=== PATIENT | male | born 1945 | race African-American/Black ===

== ENCOUNTER 2016-12-02 16:11 | Emergency (ER) | payer OTHER, BC ==
[~2016-12-02] VITALS: Ht 185.4 cm; Wt 104.3 kg
[~2016-12-02 16:11] MED LIST: CARISOPRODOL350 MG ORAL; GABAPENTIN300 MG ORAL; IBUPROFEN600 MG ORAL; LISINOPRIL5 MG ORAL; NORCO 10/3251 EA ORAL; NORCO 5-325 TA1 EACH ORAL; NORCO1 E1 ORAL; ROBAXIN-750750 MG PO; ZOLPIDEM TARTRA10 MG ORAL
[2016-12-02 16:24] VITALS: BP 101/61
[2016-12-02] MEDS ORDERED: Norco 5mg/325mg tab ORAL ONE (17:15)
[2016-12-02] MEDS ORDERED: Ketorolac 60mg Inj IM ONE (17:15)
[2016-12-02 17:57] VITALS: BP 113/63
--- NOTE | 2016-12-02 17:57 | Emergency Room Report ---
History of Present Illness General Chief Complaint: Pain Source: Patient, Medical Record Present Illness HPI 70-year-old male presents emergency department complaining of 10 out of 10 in severity left knee swelling, pain and tenderness x2 days. Patient reports that he recently had surgery done to the right knee and has been walking and compensating with his left knee. Patient states that he feels as though his knee gave out and he has had pain ever since. Patient denies erythema, increased temperature palpation, or recent fall. Denies numbness tingling or loss of sensation or gross motor movements of the extremities, incontinence of bowel or bladder. Denies CP, Palpitations, LOC, AMS, dizziness, Changes in Vision, Sensation, paresthesias, or a sudden severe headache. Allergies: Coded Allergies: No Known Allergies (Unverified , 11/10/12) Patient History Past Medical History: see triage record Past Surgical History: none Pertinent Family History: none Immunizations: UTD Reviewed Nursing Documentation: PMH: Agreed, PSxH: Agreed Nursing Documentation-PMH Past Medical History: No History, Except For Hx Cardiac Problems: Yes Hx Hypertension: Yes Hx Asthma: Yes Hx Cancer: No Hx Gastrointestinal Problems: No Hx Neurological Problems: No Review of Systems All Other Systems: negative except mentioned in HPI Physical Exam Vital Signs Date Time Temp Pulse Resp B/P Pulse Ox O2 Delivery O2 Flow Rate FiO2 12/02/16 16:24 98.1 87 16 101/61 97 Room Air Sp02 EP Interpretation: reviewed, normal General Appearance: no apparent distress, alert, GCS 15, non-toxic Head: normocephalic, atraumatic Eyes: bilateral eye PERRL, bilateral eye normal inspection ENT: hearing grossly normal, normal pharynx, no angioedema, normal voice Neck: full range of motion, supple/symm/no masses Respiratory: chest non-tender, lungs clear, normal breath sounds, speaking full sentences Cardiovascular #1: regular rate, rhythm, no edema Musculoskeletal: back normal, normal range of motion, no calf tenderness, tender - moderate anterior and lateral ttp of the left knee, there is swelling noted, no erythema, no increased temperature to palpation, mild increase in laxity noted. Neurologic: alert, oriented x3, responsive, motor strength/tone normal, sensory intact, speech normal Psychiatric: judgement/insight normal, memory normal, mood/affect normal Skin: normal color, no rash, warm/dry, well hydrated Lymphatic: no adenopathy Medical Decision Making PA Attestation Dr. Lerner is my supervising Physician whom patient management has been discussed with. Diagnostic Impression: Primary Impression: Knee fracture, left Additional Impression: Knee effusion, left ER Course 70-year-old male presents emergency department complaining of 10 out of 10 in severity left knee swelling, pain and tenderness x2 days. Patient reports that he recently had surgery done to the right knee and has been walking and compensating with his left knee. Patient states that he feels as though his knee gave out and he has had pain ever since. Patient denies erythema, increased temperature palpation, or recent fall. Denies numbness tingling or loss of sensation or gross motor movements of the extremities, incontinence of bowel or bladder. Ddx considered but are not limited to Fracture, dislocation, contusion, Sprain/ Strain/Spasm, Epidural abscess, Neoplastic mets. Vital signs: are WNL, pt. is afebrile H&PE are most consistent with left knee effusion, will do imaging. ORDERS: - X-ray left knee 3 views - Positive for chip fracture of distal femur , Dislocation, or significant soft tissue injury, per preliminary read in ED by Dr. Lerner ED INTERVENTIONS: - Wallace PO - Knee immobilizer Splint applied to left knee by certified dialysis technician. Pt. remains neurovascularly intact. -Pt provided with crutches DISCHARGE: At this time pt. is stable for d/c to home. Will provide printed patient care instructions, and any necessary prescriptions. Care plan and follow up instructions have been discussed with the patient prior to discharge. Last Vital Signs Date Time Temp Pulse Resp B/P Pulse Ox O2 Delivery O2 Flow Rate FiO2 12/02/16 17:31 98.1 12/02/16 16:24 87 16 101/61 97 Room Air Disposition: HOME, SELF-CARE Condition: Stable Scripts Hydrocodone Bit/Acetaminophen 5-325* (NORCO 5-325*) 1 Each Tablet 1 TAB ORAL Q6H Y for For Pain, #10 TAB 0 Refills Prov: Komal Hendricks P.A. 12/02/16 Ibuprofen* (MOTRIN*) 600 Mg Tablet 600 MG ORAL THREE TIMES A DAY, #30 TAB 0 Refills Prov: Komal Hendricks P.A. 12/02/16 Patient Instructions: Knee Fracture, Adult Additional Instructions: Take medications as directed. Follow up with PCP/ Bean Picker Machine Operator in 3-5 days Return sooner to ED if new symptoms occur, or current symptoms become worse. Do not drink alcohol, drive, or operate heavy machinery while taking Wallace as this may cause drowsiness. - Please note that this Emergency Department Report was dictated using Smart [employer]ipe[employer] and breakfast innkeeper technology software, occasionally this can lead to erroneous entry secondary to interpretation by the dictation equipment. Komal Hendricks December 02, 2016 17:57
[2016-12-02] MEDS ORDERED: IBUPROFEN600 MG ORAL (17:58)
[2016-12-02] MEDS ORDERED: NORCO 5-325 TA1 EACH ORAL (17:58)
--- NOTE | 2016-12-03 10:37 | Diagnostic Imaging Report ---
Indication: Pain 3 views of the left knee were obtained. Findings: There is opacification of the suprapatellar region and generalized subcutaneous edema about the knee. Subchondral cystic changes noted in the patellofemoral compartment. No fracture or malalignment seen. Impression: Soft tissue swelling and joint effusion suspected. Patellofemoral osteoarthritis
== END 2016-12-02 18:23 | disposition home or self-care (01) ==
LOC: EMR 16:58
DX: S82.002A Unspecified fracture of left patella, initial encounter for closed fracture (principal); X58.XXXA Exposure to other specified factors, initial encounter; Y92.9 Unspecified place or not applicable; M17.12 Unilateral primary osteoarthritis, left knee; M25.462 Effusion, left knee; I10 Essential (primary) hypertension; J45.909 Unspecified asthma, uncomplicated
CPT/HCPCS: 96372; 99284

== ENCOUNTER 2017-03-20 15:24 | Emergency (ER) | payer BC, OTHER ==
[~2017-03-20] VITALS: Ht 188 cm; Wt 104.3 kg
[2017-03-20] MEDS ORDERED: VICODIN HP 10-1 EACH ORAL (15:31)
[2017-03-20] MEDS ORDERED: HYDROCHLOROTHIA25 MG ORAL (15:31)
[2017-03-20] MEDS ORDERED: ACETAMINOPHEN-1 EAC1 ORAL (16:29)
[2017-03-20 16:40] VITALS: BP 124/78
--- NOTE | 2017-03-20 21:13 | Emergency Room Report ---
History of Present Illness General Chief Complaint: Pain Source: Patient Present Illness HPI The patient is a 71-year-old male presenting for right foot pain. He has a history of venous insufficiency and has had swollen foot in the past. He states that he was in [place] and was on his feet more than usual and started to notice pain and swelling of the right foot. This began 3 days prior while in [place]. Pain is a 9/10 dull ache and does not radiate. Worse with walking. He denies any numbness or tingling. He denies any known injury to the area. He denies any other symptoms including N, V, F, chills, SOB, calf pain, CP Allergies: Coded Allergies: No Known Allergies (Unverified , 11/10/12) Patient History Past Medical History: see triage record Pertinent Family History: none Reviewed Nursing Documentation: PMH: Agreed, PSxH: Agreed Nursing Documentation-PMH Hx Cardiac Problems: Yes Hx Hypertension: Yes Hx Asthma: Yes Hx Cancer: No Hx Gastrointestinal Problems: No Hx Neurological Problems: No Review of Systems All Other Systems: negative except mentioned in HPI Physical Exam Vital Signs Date Time Temp Pulse Resp B/P Pulse Ox O2 Delivery O2 Flow Rate FiO2 03/20/17 15:28 97.5 85 20 136/75 97 Room Air Sp02 EP Interpretation: reviewed, normal General Appearance: no apparent distress, alert, GCS 15, non-toxic Eyes: bilateral eye PERRL, bilateral eye normal inspection Respiratory: chest non-tender, lungs clear, normal breath sounds, speaking full sentences Musculoskeletal: back normal, gait/station normal, normal range of motion, no calf tenderness, swelling - diffuse 1+ pitting edema to the R foot only, tender - Diffuse TTP of the foot Neurologic: alert, oriented x3, responsive, motor strength/tone normal, sensory intact, speech normal Psychiatric: judgement/insight normal, memory normal, mood/affect normal, no suicidal/homicidal ideation Skin: normal color, no rash, warm/dry, well hydrated Medical Decision Making PA Attestation Dr. Solis is my supervising physician. Patient management was discussed with my supervising physician Diagnostic Impression: Primary Impression: Foot pain, right ER Course The patient is a 71-year-old male presenting for right foot pain. Differential diagnosis considered not limited to: Venous insufficiency, gout, sprain, contusion, DVT, among others Physical exam: Afebrile. No apparent distress Lungs are clear to auscultation bilaterally Right leg: There is no calf tenderness or lower leg edema. There is 1+ pitting edema and diffuse tenderness to palpation over the foot which extends from the ankle to the toes. Skin is warm and dry. No erythema Otherwise exam unremarkable X-ray of the right foot reveals no acute findings Tomas wrap is placed over the right foot and the patient will be discharged home. He needs to followup with his primary doctor. ER precautions are given Other X-Ray Diagnostic Results Other X-Ray Diagnostic Results : X-Ray ordered: R foot # of Views/Limited Vs Complete: 3 View Indication: Pain EP Interpretation: Yes Interpretation: no dislocation, no fractures, other - + STS Impression: No acute disease Interpreting ER Provider: Bridger Solis MD PA Scribe Text I am acting as scribe for my supervising physician. My supervising physician's interpretation of the R foot xrays are there are no fractures, dislocations. + STS Last Vital Signs Date Time Temp Pulse Resp B/P Pulse Ox O2 Delivery O2 Flow Rate FiO2 03/20/17 16:40 97.5 77 16 124/78 99 Room Air Status: improved Disposition: HOME, SELF-CARE Condition: Improved Scripts Acetaminophen With Codeine (T#3) (TYLENOL #3 TAB*) Y Tab 1 TAB ORAL Q6HR Y for For Pain, #10 TAB Prov: PATEL GOMEZ 03/20/17 Patient Instructions: Edema Additional Instructions: I discussed my findings with the patient. All questions and concerns have been answered. Treatment and medication compliance have been addressed. I advised the patient that they need to follow up with PMD in 3-5 days. Return to ED if pain remains or worsens, swelling worsens, numbness or tingling occurs, new rash is noticed, fever is noticed, you have chest pain or shortness of breath, or if needed for any reason. Patient verbalized understanding of discharge instructions. PATEL GOMEZ Mar 20, 2017 21:13
--- NOTE | 2017-03-21 10:37 | Diagnostic Imaging Report ---
Indication: PAIN Technique: 3 views right foot Comparison: none Findings: There is hammertoe deformity of the second through fifth digits. There is mild metatarsus adductus. There is mild hallux valgus. No acute fractures. No dislocations. There is a small plantar spur. The joint spaces are preserved. Impression: Findings as noted. No acute bony trauma
== END 2017-03-20 16:41 | disposition home or self-care (01) ==
LOC: EMR 15:50
DX: M25.571 Pain in right ankle and joints of right foot (principal); I10 Essential (primary) hypertension; M77.9 Enthesopathy, unspecified; M20.41 Other hammer toe(s) (acquired), right foot
CPT/HCPCS: 99283

== ENCOUNTER 2017-06-06 09:55 | Outpatient (CLI) | payer BC, OTHER ==
[~2017-06-06 09:55] MED LIST changes: +ACETAMINOPHEN-1 EAC1 ORAL; +HYDROCHLOROTHIA25 MG ORAL; +VICODIN HP 10-1 EACH ORAL
--- NOTE | 2017-06-06 12:26 | Diagnostic Imaging Report ---
APPROVED REPORT CPT Code: 08968 Present Symptoms Lower Extremity Pain: Right Lower Extremity Edema: Bilateral BILATERAL: Imaging reveals a patent deep venous system bilaterally. There is no evidence of thrombus within the femoral, popliteal or tibial segments. The greater saphenous veins are also within normal limits. Doppler indicates normal spontaneous flow within these segments. Incidental finding: Right knee area: Septated cystic fluid collection noted in the superior- lateral knee area, measuring (4.0 cm x 1.4cm). Left knee area: Cystic free fluid collection noted in the superior- lateral knee area, measuring (2.2 cm x 0.9 cm).
--- NOTE | 2017-06-06 12:26 | Diagnostic Imaging Report ---
APPROVED REPORT CPT Code: 17205 Present Symptoms Lower Extremity Pain: Right Lower Extremity Edema: Bilateral BILATERAL: Imaging reveals a patent deep venous system bilaterally. There is no evidence of thrombus within the femoral, popliteal or tibial segments. The greater saphenous veins are also within normal limits. Doppler indicates normal spontaneous flow within these segments. Incidental finding: Right knee area: Septated cystic fluid collection noted in the superior- lateral knee area, measuring (4.0 cm x 1.4cm). Left knee area: Cystic free fluid collection noted in the superior- lateral knee area, measuring (2.2 cm x 0.9 cm).
--- NOTE | 2017-06-06 12:26 | Diagnostic Imaging Report ---
APPROVED REPORT CPT Code: 32130 Present Symptoms Lower Extremity Pain: Right Lower Extremity Edema: Bilateral BILATERAL: Imaging reveals a patent deep venous system bilaterally. There is no evidence of thrombus within the femoral, popliteal or tibial segments. The greater saphenous veins are also within normal limits. Doppler indicates normal spontaneous flow within these segments. Incidental finding: Right knee area: Septated cystic fluid collection noted in the superior- lateral knee area, measuring (4.0 cm x 1.4cm). Left knee area: Cystic free fluid collection noted in the superior- lateral knee area, measuring (2.2 cm x 0.9 cm).
== END 2017-06-06 11:55 | disposition home or self-care (01) ==
LOC: VAS 09:55
DX: M79.605 Pain in left leg (principal); M79.604 Pain in right leg; R60.0 Localized edema
CPT/HCPCS: 93970

== ENCOUNTER 2018-03-16 17:05 | Emergency (ER) | payer BC, OTHER ==
[~2018-03-16] VITALS: Ht 185.4 cm; Wt 104.3 kg
[2018-03-16] MEDS ORDERED: Ketorolac 30mg Inj IV ONE (18:00)
[2018-03-16] MEDS ORDERED: Methocarbamol 500mg tab ORAL ONE (18:00)
--- NOTE | 2018-03-16 18:23 | Emergency Room Report ---
History of Present Illness General Chief Complaint: Lower Back Pain or Injury Source: Patient (Jordan Batista) Present Illness HPI 72-year-old male patient presents ER with multiple complaints. planing of pain in bilateral legs and ankles, complains of swelling the extremities. for swelling in extremities is new in onset. Reports history of DVT, does not take any blood thinners at this time. States he was recently told to discontinue taking aspirin. States that he called scheduled appointment with his doctor, was called back by the doctor and told reports to the ER. Denies history of CHF. Patient reports back pain for the past several days, states recent history of cyst surgery to remove cysts and left side of lower back. Denies radiation of pain down the legs. Denies bowel or bladder incontinence. Denies recent injury or trauma. states he is able to ambulate. reports recently diagnosed with diabetes.reports history of hypertension, taking blood pressure medication. reports history of ME "years ago". (Jordan Batista) Allergies: Coded Allergies: No Known Allergies (Unverified , 11/10/12) Patient History Past Medical History: see triage record Reviewed Nursing Documentation: PMH: Agreed; PSxH: Agreed (Jordan Batista) Nursing Documentation-PMH Past Medical History: No History, Except For Hx Cardiac Problems: Yes Hx Hypertension: Yes Hx Asthma: Yes Hx Cancer: No Hx Gastrointestinal Problems: No Hx Neurological Problems: No (Jordan Batista) Review of Systems All Other Systems: negative except mentioned in HPI (Jordan Batista) Physical Exam Vital Signs Date Time Temp Pulse Resp B/P (MAP) Pulse Ox O2 Delivery O2 Flow Rate FiO2 03/16/18 17:10 98.0 71 18 150/75 99 Room Air 98.1 Sp02 EP Interpretation: reviewed, normal General Appearance: well appearing, no apparent distress, alert, GCS 15, non- toxic Head: normocephalic, atraumatic Eyes: bilateral eye normal inspection, bilateral eye PERRL ENT: hearing grossly normal, normal pharynx, no angioedema, normal voice, uvula midline, moist mucus membranes Neck: full range of motion, no bony tend Respiratory: lungs clear, normal breath sounds, no rhonchi, no respiratory distress, no accessory muscle use, no wheezing, speaking full sentences Cardiovascular #1: regular rate, rhythm, edema Gastrointestinal: non tender, soft, no mass, non-distended, no guarding, no rebound Musculoskeletal: back normal, digits/nails normal, gait/station normal, normal range of motion, non-tender, no calf tenderness, Damaris's Sign negative Neurologic: alert, oriented x3, responsive, motor strength/tone normal, sensory intact Psychiatric: mood/affect normal Skin: no rash (Jordan Batista) Medical Decision Making PA Attestation Dr. Herrera is my supervising Physician whom patient management has been discussed with. (Jordan Batista) Diagnostic Impression: Primary Impression: Peripheral edema Additional Impression: Low back pain ER Course Pt. presents to the ED c/o bilateral leg swelling and back pain. Ddx considered but are not limited to DVT, PE, ME, peripheral vascular disease, sprain, strain, muscle spasm, UTI. Vital signs: are WNL, pt. is afebrile ER COURSE: provide patient with back pain medication and muscle relaxant. CBC and CMP unremarkable, Coags WNL BNP not elevated above normal Troponin negative EKG shows no ST elevations or arrhythmia, right bundle branch block noted, T wave inversions noted in V1 through V4 leads chest x-ray shows diffuse consolidation consistent with CHF per the preliminary reading. Consult with Dr. Herrera agrees with the x-ray reading finding. Venous duplex ultrasound shows no DVT per triage technician. Due to patient symptoms of peripheral edema and chest x-ray findings, we will admit patient for CHF. consult with Dr. Herrera, patient care transferred to Dr. Herrera. - Please note that this Emergency Department Report was dictated using [employer]ang[employer] heater technology software, occasionally this can lead to erroneous entry secondary to interpretation by the dictation equipment. Labs Test 03/16/18 19:00 White Blood Count 5.3 K/UL (4.8-10.8) Red Blood Count 3.85 M/UL (4.70-6.10) Hemoglobin 11.9 G/DL (14.2-18.0) Hematocrit 35.9 % (42.0-52.0) Mean Corpuscular Volume 93 FL (80-99) Mean Corpuscular Hemoglobin 30.9 PG (27.0-31.0) Mean Corpuscular Hemoglobin Concent 33.1 G/DL (32.0-36.0) Red Cell Distribution Width 11.6 % (11.6-14.8) Platelet Count 200 K/UL (150-450) Mean Platelet Volume 5.6 FL (6.5-10.1) Neutrophils (%) (Auto) 42.1 % (45.0-75.0) Lymphocytes (%) (Auto) 42.3 % (20.0-45.0) Monocytes (%) (Auto) 12.0 % (1.0-10.0) Eosinophils (%) (Auto) 2.4 % (0.0-3.0) Basophils (%) (Auto) 1.2 % (0.0-2.0) Prothrombin Time 10.3 SEC (9.30-11.50) Prothromb Time International Ratio 1.0 (0.9-1.1) Activated Partial Thromboplast Time 26 SEC (23-33) Sodium Level 142 MMOL/L (136-145) Potassium Level 4.1 MMOL/L (3.5-5.1) Chloride Level 105 MMOL/L (98-107) Carbon Dioxide Level 30 MMOL/L (21-32) Anion Gap 7 mmol/L (5-15) Blood Urea Nitrogen 17 mg/dL (7-18) Creatinine 1.3 MG/DL (0.55-1.30) Estimat Glomerular Filtration Rate mL/min (>60) Glucose Level 99 MG/DL (74-106) Calcium Level 9.7 MG/DL (8.5-10.1) Total Bilirubin 0.4 MG/DL (0.2-1.0) Aspartate Amino Transf (AST/SGOT) 26 U/L (15-37) Alanine Aminotransferase (ALT/SGPT) 32 U/L (12-78) Alkaline Phosphatase 97 U/L (46-116) Total Creatine Kinase 221 U/L (26-308) Creatine Kinase MB 2.7 NG/ML (0.0-3.6) Creatine Kinase MB Relative Index 1.2 Troponin I 0.000 ng/mL (0.000-0.056) Pro-B-Type Natriuretic Peptide 104 pg/mL (0-125) Total Protein 7.3 G/DL (6.4-8.2) Albumin 3.7 G/DL (3.4-5.0) Globulin 3.6 g/dL Albumin/Globulin Ratio 1.0 (1.0-2.7) (Jordan Batista) ER Course I evaluated Mr. Jacinto. CXR showed alveolar congestion. 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 He has been evaluated recently by network cabler who explained that his "heart is fine." He does have 2+ pitting edema without acute DVT on US. He will be discharged home. I do not suspect CHF on re-evaluation. Labs Test 03/16/18 19:00 03/16/18 21:46 White Blood Count 5.3 K/UL (4.8-10.8) Red Blood Count 3.85 M/UL (4.70-6.10) Hemoglobin 11.9 G/DL (14.2-18.0) Hematocrit 35.9 % (42.0-52.0) Mean Corpuscular Volume 93 FL (80-99) Mean Corpuscular Hemoglobin 30.9 PG (27.0-31.0) Mean Corpuscular Hemoglobin Concent 33.1 G/DL (32.0-36.0) Red Cell Distribution Width 11.6 % (11.6-14.8) Platelet Count 200 K/UL (150-450) Mean Platelet Volume 5.6 FL (6.5-10.1) Neutrophils (%) (Auto) 42.1 % (45.0-75.0) Lymphocytes (%) (Auto) 42.3 % (20.0-45.0) Monocytes (%) (Auto) 12.0 % (1.0-10.0) Eosinophils (%) (Auto) 2.4 % (0.0-3.0) Basophils (%) (Auto) 1.2 % (0.0-2.0) Prothrombin Time 10.3 SEC (9.30-11.50) Prothromb Time International Ratio 1.0 (0.9-1.1) Activated Partial Thromboplast Time 26 SEC (23-33) Sodium Level 142 MMOL/L (136-145) Potassium Level 4.1 MMOL/L (3.5-5.1) Chloride Level 105 MMOL/L (98-107) Carbon Dioxide Level 30 MMOL/L (21-32) Anion Gap 7 mmol/L (5-15) Blood Urea Nitrogen 17 mg/dL (7-18) Creatinine 1.3 MG/DL (0.55-1.30) Estimat Glomerular Filtration Rate mL/min (>60) Glucose Level 99 MG/DL (74-106) Calcium Level 9.7 MG/DL (8.5-10.1) Total Bilirubin 0.4 MG/DL (0.2-1.0) Aspartate Amino Transf (AST/SGOT) 26 U/L (15-37) Alanine Aminotransferase (ALT/SGPT) 32 U/L (12-78) Alkaline Phosphatase 97 U/L (46-116) Total Creatine Kinase 221 U/L (26-308) Creatine Kinase MB 2.7 NG/ML (0.0-3.6) Creatine Kinase MB Relative Index 1.2 Troponin I 0.000 ng/mL (0.000-0.056) Pro-B-Type Natriuretic Peptide 104 pg/mL (0-125) Total Protein 7.3 G/DL (6.4-8.2) Albumin 3.7 G/DL (3.4-5.0) Globulin 3.6 g/dL Albumin/Globulin Ratio 1.0 (1.0-2.7) Urine Color Pale yellow Urine Appearance Clear Urine pH 6.5 (4.5-8.0) Urine Specific [place] 1.010 (1.005-1.035) Urine Protein Negative (NEGATIVE) Urine Glucose (UA) Negative (NEGATIVE) Urine Ketones Negative (NEGATIVE) Urine Occult Blood Negative (NEGATIVE) Urine Nitrite Negative (NEGATIVE) Urine Bilirubin Negative (NEGATIVE) Urine Urobilinogen Normal MG/DL (0.0-1.0) Urine Leukocyte Esterase Negative (NEGATIVE) Lab Results Impression normal BNP (PERCY HERRERA) EKG Diagnostic Results Rate: normal Rhythm: NSR ST Segments: no acute changes Other Impression right bundle-branch block T wave inversions in V1-V4 ASA given to the pt in ED: No PA Scribe Text Kevin Batista PA-C (Jordan Batista P.A.) EKG Time: 18:42 EP Interpretation: left axis devation RBBB Rate: normal Rhythm: NSR ST Segments: no acute changes (PERCY HERRERA) Rhythm Strip Diag. Results EP Interpretation: yes Rate: 71 Rhythm: NSR, no PVC's, no ectopy PA Scribe Text Kevin Batista PA-C (Jordan Batista) Chest X-Ray Diagnostic Results Chest X-Ray Diagnostic Results : Chest X-Ray Ordered: Yes # of Views/Limited/Complete: 1 View Indication: Chest Pain EP Interpretation: Yes PA Xray: Interpretation reviewed, by supervising MD, and agrees with findings. Interpretation: no pneumothorax, other - diffuse consolidation throughout the lung moscoso Impression: Other PA Scribe Text Kevin CHILEL-C (Jordan Batista) CT/MRI/US Diagnostic Results CT/MRI/US Diagnostic Results : Imaging Test Ordered: venous duplex US of bilateral lower extremities Impression WNL No DVT (Jordan Batista) Last Vital Signs Date Time Temp Pulse Resp B/P (MAP) Pulse Ox O2 Delivery O2 Flow Rate FiO2 03/16/18 17:10 98.0 71 18 150/75 99 Room Air 98.1 (Jordan Batista) Disposition: HOME, SELF-CARE Condition: Stable Jordan Batista Mar 16, 2018 18:23 PERCY HERRERA Mar 16, 2018 22:47
[2018-03-16 19:18] LABS: BASOPHILS % (AUTO) 1.2 % (0.0-2.0); EOSINOPHILS % (AUTO) 2.4 % (0.0-3.0); HEMATOCRIT 35.9 % (42.0-52.0); HEMOGLOBIN 11.9 G/DL (14.2-18.0); LYMPHOCYTES % (AUTO) 42.3 % (20.0-45.0); MEAN CORPUSCULAR VOLUME 93 FL (80-99); NEUTROPHILS % (AUTO) 42.1 % (45.0-75.0); PLATELET COUNT 200 K/UL (150-450); RED BLOOD COUNT 3.85 M/UL (4.70-6.10); RED CELL DISTRIBUTION WIDTH 11.6 % (11.6-14.8); WHITE BLOOD COUNT 5.3 K/UL (4.8-10.8)
[2018-03-16 19:30] VITALS: BP 145/72
[2018-03-16 19:38] LABS: ANION GAP 7 mmol/L (5-15); BLOOD UREA NITROGEN 17 mg/dL (7-18); CALCIUM 9.7 MG/DL (8.5-10.1); CARBON DIOXIDE 30 MMOL/L (21-32); CHLORIDE 105 MMOL/L (98-107); CREATININE 1.3 MG/DL (0.55-1.30); POTASSIUM 4.1 MMOL/L (3.5-5.1); SODIUM 142 MMOL/L (136-145)
[2018-03-16 19:52] LABS: ALANINE AMINOTRANSFERASE 32 U/L (12-78); ALBUMIN 3.7 G/DL (3.4-5.0); ALKALINE PHOSPHATASE 97 U/L (46-116); ASPARTATE AMINO TRANSFERASE 26 U/L (15-37); BILIRUBIN,TOTAL 0.4 MG/DL (0.2-1.0); CKMB 2.7 NG/ML (0.0-3.6); CREATINE KINASE 221 U/L (26-308)
[2018-03-16 20:32] VITALS: BP 147/58
[2018-03-16 22:18] LABS: APPEARANCE,URINE CLEAR; BILIRUBIN, URINE NEGATIVE (NEGATIVE); COLOR,URINE PALE YELLOW; GLUCOSE, URINE (UA) NEGATIVE (NEGATIVE); KETONES,URINE NEGATIVE (NEGATIVE); LEUKOCYTE ESTERASE ,URINE NEGATIVE (NEGATIVE); NITRITE,URINE NEGATIVE (NEGATIVE); PH,URINE 6.5 (4.5-8.0); PROTEIN,URINE NEGATIVE (NEGATIVE); UROBILINOGEN,URINE NORMAL MG/DL (0.0-1.0)
[2018-03-16 22:49] VITALS: BP 153/89
[2018-03-16 23:00] VITALS: BP 153/89
--- NOTE | 2018-03-17 09:01 | Diagnostic Imaging Report ---
Indication: Chest pain Technique: One view of the chest Comparison: 09/03/2013 Findings: Interim development of interstitial disease. There is also marked central bronchial wall thickening, also new finding. Inspiration is suboptimal. No focal airspace consolidation. Pleural spaces are clear Impression: Bilateral interstitial disease. New since 09/03/2013, so likely acute on the basis of interstitial edema. However, presence of extensive central bronchial wall thickening raises possibility of a significant chronic component
--- NOTE | 2018-03-17 15:34 | Cardiology Report ---
APPROVED REPORT EKG Measurement Heart [id number] Normal sinus rhythm Left axis deviation Right bundle branch block Possible Lateral infarct, age undetermined Inferior infarct, age undetermined Abnormal ECG
--- NOTE | 2018-03-18 23:36 | Diagnostic Imaging Report ---
APPROVED REPORT CPT Code: 24515 Present Symptoms Comments: BILATERAL LEGS PAIN. BILATERAL: Imaging reveals a patent deep venous system bilaterally. There is no evidence of thrombus within the femoral, popliteal or tibial segments. The greater saphenous veins are also within normal limits. Doppler indicates normal spontaneous flow within these segments.
== END 2018-03-16 23:00 | disposition home or self-care (01) ==
LOC: EMR 18:00 → UNDOADMIN 22:22 → 2E 22:22 → EDBEDREQ 22:35 → EMR 23:00 → CANBEDREQ 23:04
DX: R60.0 Localized edema (principal); M54.5 Low back pain; I10 Essential (primary) hypertension; J45.909 Unspecified asthma, uncomplicated
CPT/HCPCS: 36415; 71045; 80053; 81003; 82550; 82553; 83880; 84484; 85025; 85610; 85730; 93005; 93970; 96374; 99284; J1885